=== PATIENT | female | born 1955 | race Two or more races ===

== ENCOUNTER 2016-10-29 06:12 | Emergency (ER) | payer MEDICAID ==
[~2016-10-29] VITALS: Ht 162.6 cm; Wt 89.0 kg
[~2016-10-29 06:12] MED LIST: CYCL-259 PO; FLUO20CA19 PO; GABA-826 PO; INSU100I17; INSU100V13 SQ; LEVO100T5 PO; LOSA1TAB16 PO; PROC10TA PO; SIMV40TA3 PO; SODI650T PO
[2016-10-29 06:21] VITALS: BP 152/85
[2016-10-29] MEDS ORDERED: ACETAMINOPHEN 325 MG TABLET PO ONE (07:00)
[2016-10-29] MEDS ORDERED: ACETAMINOPHEN 325 MG TABLET ONE (07:22)
[2016-10-29 07:30] LABS: ASPARTATE AMINO TRANSFERASE 26 U/L (15-37); BLOOD UREA NITROGEN 26 mg/dL (7-18)
== END 2016-10-29 08:11 | disposition home or self-care (01) ==
LOC: ED 07:50
DX: E10.21 Type 1 diabetes mellitus with diabetic nephropathy (principal); E10.65 Type 1 diabetes mellitus with hyperglycemia; E78.00 Pure hypercholesterolemia, unspecified; I10 Essential (primary) hypertension; M79.671 Pain in right foot; M79.672 Pain in left foot; R10.32 Left lower quadrant pain; Z90.49 Acquired absence of other specified parts of digestive tract
CPT/HCPCS: 36415; 80053; 81003; 83690; 85025; 99284